=== PATIENT | male | born 1990 | race Caucasian/White ===

== ENCOUNTER 2021-01-30 21:40 | Emergency (ER) | payer BC ==
[2021-01-30] MEDS ORDERED: Proparacaine 0.5% Ophth Soln 15 ML Bottle EYEBOTH STA (22:13)
--- NOTE | 2021-01-30 22:26 | EDM.PDOC ---
ED HPI GENERAL MEDICAL PROBLEM - General Chief Complaint: Eye Problems Stated Complaint: SOMETHING IN RT EYE Time Seen by Provider: 01/30/21 21:48 Source of Information: Reports: Patient, RN Notes Reviewed History Limitations: Reports: No Limitations - History of Present Illness INITIAL COMMENTS - FREE TEXT/NARRATIVE: 30-year-old gentleman presents emergency department today with foreign body sensation in his right eye, he believes he may have been injured when he was mowing grass earlier today. He did flush his eye prior to presentation - Related Data Allergies Allergy/AdvReac Type Severity Reaction Status Date / Time No Known Allergies Allergy Verified 01/30/21 22:05 Home Meds: Home Meds NK [No Known Home Meds] 01/30/21 [History] Past Medical History - Past Surgical History HEENT Surgical History: Reports: Adenoidectomy, Tonsillectomy Social & Family History - Tobacco Use Tobacco Use Status *Q: Never Tobacco User ED ROS GENERAL - Review of Systems Review Of Systems: See Below HEENT: Reports: Eye Discharge, Eye Pain ED EXAM GENERAL W FULL EYE - Physical Exam Exam: See Below Exam Limited By: No Limitations General Appearance: Alert, WD/WN, No Apparent Distress Eye Exam: Bilateral Eye: Normal Inspection, PERRL Eyelids: Bilateral: Normal Appearance Conjunctiva & Sclera: Bilateral: Normal Appearance Cornea Exam: Right: Examined with Flourescein, Bilateral: Normal Appearance Extraocular Movements: Bilateral: Intact Pupils: Normal Accommodation Pupillary Size: Bilateral: 5 mm Pupillary Reaction: Bilateral: Brisk Anterior Chamber: Bilateral: Normal Appearance Course - Vital Signs Last Recorded V/S: Last Vital Signs Temp 97.2 F 01/30/21 22:09 Pulse 71 01/30/21 22:09 Resp 16 01/30/21 22:09 BP 131/77 01/30/21 22:09 Pulse Ox 98 01/30/21 22:09 - Orders/Labs/Meds Meds: Medications Discontinued Medications Generic Name Dose Route Start Last Admin Trade Name Freq PRN Reason Stop Dose Admin Proparacaine HCl 1 ml 01/30/21 22:13 Proparacaine 0.5% Ophth Soln 15 Ml Bottle EYEBOTH 01/30/21 22:14 NOW STA Departure - Departure Time of Disposition: 22:23 Disposition: Home, Self-Care 01 Condition: Fair Clinical Impression: Sensation of foreign body in eye - Discharge Information Instructions: Eye Foreign Body, [id number] Referrals: PCP,None [Primary Care Provider] - Additional Instructions: Continue to use antibiotics till reevaluated by eye care provider, please follow-up with your eye care provider on Monday of next Sepsis Event Note (ED) - Evaluation Sepsis Screening Result: No Definite Risk - Focused Exam Vital Signs: Vital Signs Temp Pulse Resp BP Pulse Ox 01/30/21 22:09 97.2 F 71 16 131/77 98 01/30/21 22:03 97.2 F 71 16 131/77 98 - Assessment/Plan Plan: Assessment Acuity = acute Site and laterality = foreign body sensation right eye Etiology = possible foreign body from mowing grass Manifestations = none Location of injury = Home Lab values = none Plan Tetanus was up-to-date elected to prophylactically cover him with erythromycin ophthalmic ointment until he can follow-up with the eye care provider on Monday of this next week, flushed with copious amounts of saline nursing did report a small foreign body was recovered This note was dictated using [employer] voice recognition software please call with any questions on syntax or grammar.
== END 2021-01-30 22:33 | disposition home or self-care (01) ==
LOC: JP.ED 21:40
DX: T15.91XA Foreign body on external eye, part unspecified, right eye, initial encounter (principal)
CPT/HCPCS: 99282